=== PATIENT | female | born 1995 | race Caucasian/White ===

== ENCOUNTER 2017-04-04 17:25 | Inpatient (IN) | payer MEDICAID ==
[~2017-04-04] VITALS: Ht 165.1 cm; Wt 78.2 kg
[2017-04-04 18:31] LABS: Basophils # (auto) 0 uL; Basophils % (auto) 0.4 % (0.0-2.0); Eosinophils # (auto) 0 uL; Eosinophils % (auto) 0.2 % (0.0-7.0); Hematocrit 40.9 % (36.0-46.0); Hemoglobin 13.8 g/dL (12.2-16.2); Lymphocytes # (auto) 2.5 uL; Lymphocytes % (auto) 32.5 % (10.0-50.0); Mean Corpuscular Hemoglobin 28.4 pg (28.0-32.0); Mean Corpuscular Hgb Conc. 33.7 g/dL (32.0-36.0); Mean Corpuscular Volume 84.2 fL (80.0-100.0); Monocytes # (auto) 0.5 uL; Monocytes % (auto) 6.9 % (0.0-12.0); Neutrophils # (auto) 4.6 uL; Nucleated Red Blood Cells % 0.1 %; Platelet Count (auto) 295 10^3/uL (140-450); Red Blood Cells 4.86 10^6/uL (4.0-5.20); Red Cell Distribution Width 13.4 % (11.8-14.3); White Blood Cell 7.6 10^3/uL (4.4-10.8)
[2017-04-04 18:45] LABS: Albumin 4.4 g/dL (3.4-5.0); BUN/Creatinine Ratio 8.2; Calcium 9.7 mg/dL (8.5-10.1); Potassium 3.6 mmol/L (3.5-5.1)
[2017-04-04 18:48] LABS: Bilirubin, Total 0.4 mg/dL (0.2-1.0)
[2017-04-04 18:58] LABS: Urine Bacteria MOD /hpf (None Seen); Urine Blood Negative /uL (Negative); Urine Specific Gravity 1.003 (1.001-1.035); Urine WBC 2 /hpf (0 - 5)
[2017-04-04] MEDS ORDERED: IOHEXOL 300 MG/ML 100ML BOTTLE IJ ONE (22:47)
[2017-04-05] MEDS ORDERED: QUEtiapine FUMARATE 100 MG TAB PO ONE (03:30)
[2017-04-05] MEDS ORDERED: ONDANSETRON HCL 4 MG/2 ML VIAL IV PRN ×2 (03:30→16:00)
[2017-04-05] MEDS ORDERED: ACETAMINOPHEN 325 MG TAB PO PRN (03:30)
[2017-04-05] MEDS ORDERED: cefTRIAXone 1GM/10ml IVPUSH 10 ML IV ONE (03:30)
[2017-04-05] MEDS ORDERED: TEMAZEPAM 15 MG CAP PO PRN (03:30)
[2017-04-05] MEDS ORDERED: metroNIDAZOLE 500MG/100ML 100 ML IV ONE (03:30)
[2017-04-05] MEDS ORDERED: HYDROcodone-ACET 5/325MG TAB PO PRN (03:30)
[2017-04-05 04:23] LABS: INR 0.98 (0.9-1.15); Partial Thromboplastin Time 26.2 sec (22.64-33.71); Prothrombin Time 10.7 sec (9.37-12.3)
[2017-04-05] MEDS: SODIUM CHLORIDE 0.9% 1,000 ML IV SCH ×2 (04:30→16:50)
[2017-04-05 05:00] VITALS: BP 110/61
[2017-04-05] MEDS ORDERED: SERT-135 PO (05:53)
[2017-04-05] MEDS ORDERED: LAM100T OR (05:53)
[2017-04-05] MEDS ORDERED: QUET25TA37 PO (05:53)
[2017-04-05] MEDS ORDERED: CLON0.1T PO ×2 (05:53→09:10)
[2017-04-05] MEDS ORDERED: ATOM18CA PO (05:53)
[2017-04-05 09:00] VITALS: BP 106/47
[2017-04-05] MEDS: PANTOPRAZOLE 40 MG/10 ML VIAL IV SCH (09:40)
[2017-04-05] MEDS: lamoTRIgine 100 MG TAB PO SCH ×2 (09:40→21:42)
[2017-04-05] MEDS: SERTRALINE HCL 50 MG TAB PO SCH ×2 (09:40→21:42)
[2017-04-05] MEDS: cloNIDine HCL 0.1 MG TAB PO SCH (09:42)
[2017-04-05 13:00] VITALS: BP 102/67
[2017-04-05] MEDS ORDERED: ceFAZolin 1GM VL ONE (13:51)
[2017-04-05] MEDS ORDERED: ceFAZolin 1GM/50ML 50 ML IV ONE (13:56)
[2017-04-05] MEDS ORDERED: PROPOFOL 10 MG/ML 20 ML IV ONE (14:10)
[2017-04-05] MEDS ORDERED: ROCURONIUM 10MG/ML 10ML VIAL IV ONE (14:10)
[2017-04-05] MEDS ORDERED: fentaNYL CITRATE 100 MCG/2 ML VL ONE ×2 (14:10→15:01)
[2017-04-05] MEDS ORDERED: HYDROmorphone HCL 2 MG/ML VL ONE (14:57)
[2017-04-05] MEDS ORDERED: NEOSTIGMINE 1 MG/ML INJ (10mg/10ML VIAL) ONE (15:12)
[2017-04-05] MEDS ORDERED: GLYCOPYRROLATE 0.2 MG/ML 1ML VIAL ONE (15:12)
[2017-04-05] MEDS: LACTATED RINGER'S 1,000 ML IV SCH (15:48)
[2017-04-05] MEDS ORDERED: KETOROLAC TROMETH 30 MG/ML 1ML VIAL IV PRN (16:00)
[2017-04-05] MEDS ORDERED: hydrALAZINE HCL 20 MG/ML VL IV PRN (16:00)
[2017-04-05] MEDS ORDERED: HYDROmorphone HCL 2 MG/ML VL IV PRN ×2 (16:00)
[2017-04-05] MEDS ORDERED: ePHEDrine SULFATE 50 MG/ML AMP IV PRN (16:00)
[2017-04-05] MEDS ORDERED: ONDANSETRON HCL 4 MG/2 ML VIAL IV ONE (16:00)
[2017-04-05 17:03] VITALS: BP 100/64
[2017-04-05 22:00] VITALS: BP 112/62
[2017-04-05] MEDS ORDERED: QUEtiapine FUMARATE 100 MG TAB PO SCH (22:00)
[2017-04-06] MEDS: LACTATED RINGER'S 1,000 ML IV SCH (00:58)
[2017-04-06] MEDS: SODIUM CHLORIDE 0.9% 1,000 ML IV SCH (04:11)
[2017-04-06 05:00] VITALS: BP 119/61
[2017-04-06 07:50] LABS: Basophils # (auto) 0 uL; Basophils % (auto) 0.6 % (0.0-2.0); Eosinophils # (auto) 0 uL; Eosinophils % (auto) 0.1 % (0.0-7.0); Hematocrit 35.6 % (36.0-46.0); Hemoglobin 12.2 g/dL (12.2-16.2); Lymphocytes # (auto) 2.1 uL; Lymphocytes % (auto) 27.2 % (10.0-50.0); Mean Corpuscular Hemoglobin 28.8 pg (28.0-32.0); Mean Corpuscular Hgb Conc. 34.4 g/dL (32.0-36.0); Mean Corpuscular Volume 83.5 fL (80.0-100.0); Monocytes # (auto) 0.6 uL; Monocytes % (auto) 7.2 % (0.0-12.0); Neutrophils % (auto) 64.9 % (37.0-80.0); Platelet Count (auto) 225 10^3/uL (140-450); Red Blood Cells 4.26 10^6/uL (4.0-5.20); Red Cell Distribution Width 12.9 % (11.8-14.3); White Blood Cell 7.7 10^3/uL (4.4-10.8)
[2017-04-06 08:10] LABS: Albumin 3.4 g/dL (3.4-5.0); BUN/Creatinine Ratio 6.3; Bilirubin, Total 0.9 mg/dL (0.2-1.0); Calcium 8.3 mg/dL (8.5-10.1); Potassium 3.6 mmol/L (3.5-5.1); Total Protein 6.5 g/dL (6.4-8.2)
[2017-04-06 09:00] VITALS: BP 107/58
[2017-04-06] MEDS ORDERED: cefTRIAXone 1GM/10ml IVPUSH 10 ML IV SCH (09:00)
[2017-04-06] MEDS: PANTOPRAZOLE 40 MG/10 ML VIAL IV SCH (09:25)
[2017-04-06] MEDS: lamoTRIgine 100 MG TAB PO SCH (09:26)
[2017-04-06] MEDS: SERTRALINE HCL 50 MG TAB PO SCH (09:26)
[2017-04-06] MEDS: cloNIDine HCL 0.1 MG TAB PO SCH (09:26)
[2017-04-06 13:12] VITALS: BP 106/65
[2017-04-06 13:27] VITALS: BP 97/53
== END 2017-04-06 14:05 | disposition home or self-care (01) | DRG 518 ==
LOC: ER 17:28 → OVERFLOW 17:29 → EAST 04-05 05:13
PROVIDERS: ADMIT Nurse Practitioner; ATTEND Internal Medicine
PROC: 0WJG4ZZ Inspection of Peritoneal Cavity, Percutaneous Endoscopic Approach (ICD-10-PCS; 2017-04-05)
PROC: 0W9J4ZZ Drainage of Pelvic Cavity, Percutaneous Endoscopic Approach (ICD-10-PCS; principal; 2017-04-05 14:10)
DX: N83.201 Unspecified ovarian cyst, right side (principal); F84.0 Autistic disorder; K59.00 Constipation, unspecified; N80.9 Endometriosis, unspecified; G47.00 Insomnia, unspecified
CPT/HCPCS: 36415; 74176; 74177; 76705; 76856; 80053; 81001; 84702; 85025; 85610; 85730; 86850; 86900; 86901; 87070; 87075; 87205; C9113; J0690; J2704; J3490

== ENCOUNTER 2019-10-23 21:47 | Emergency (ER) | payer MEDICAID ==
[~2019-10-23] VITALS: Ht 165.1 cm; Wt 72.6 kg
[~2019-10-23 21:47] MED LIST: ATOM18CA PO; CLON0.1T PO; LAM100T OR; QUET25TA37 PO; SERT100T PO
[2019-10-23 22:30] LABS: Basophils # (auto) 0 10 ^3/uL (0-0.2); Basophils % (auto) 0.5 % (0.0-2.0); Eosinophils # (auto) 0 10 ^3/uL (0-0.8); Eosinophils % (auto) 0.4 % (0.0-7.0); Lymphocytes # (auto) 2.5 10 ^3/uL (0.4-5.4); Mean Corpuscular Hemoglobin 28.5 pg (28.0-32.0); Mean Corpuscular Hgb Conc. 33.2 g/dL (32.0-36.0); Mean Corpuscular Volume 85.9 fL (80.0-100.0); Monocytes # (auto) 0.6 10 ^3/uL (0-1.3); Neutrophils # (auto) 4.9 10 ^3/uL (1.6-8.6); Neutrophils % (auto) 60.1 % (37.0-80.0); Platelet Count (auto) 236 10^3/uL (140-450); Red Blood Cells 4.89 10^6/uL (4.0-5.20); Red Cell Distribution Width 13.9 % (11.8-14.3); White Blood Cell 8.1 10^3/uL (4.4-10.8)
[2019-10-23 22:51] LABS: Chloride 105 mmol/L (98-107); Potassium 4.3 mmol/L (3.5-5.1); Sodium 139 mmol/L (136-145)
[2019-10-23 22:55] LABS: Alanine Aminotransferase 16 U/L (13-56); Albumin 3.9 g/dL (3.4-5.0); Anion Gap 7 (5-15); Aspartate Aminotransferase 14 U/L (15-37); BUN/Creatinine Ratio 14.7; Blood Alcohol < 3.0 mg/dL (0-5); Blood Urea Nitrogen 14 mg/dL (7-18); Calcium 8.9 mg/dL (8.5-10.1); Carbon Dioxide 27 mmol/L (21-32); GFR African American 93 mL/min; GFR Non-African American 77 mL/min; Glucose 92 mg/dL (74-106); Magnesium 2.3 mg/dL (1.6-2.6); Salicylate < 1.7 mg/dL (2.8-20.0)
[2019-10-23 22:57] LABS: Alkaline Phosphatase 92 U/L (45-117); Bilirubin, Total 0.4 mg/dL (0.2-1.0); Total Protein 7.8 g/dL (6.4-8.2)
[2019-10-23 23:02] LABS: Acetaminophen < 2.0 ug/mL (10-30)
[2019-10-24 00:51] LABS: Urine Bacteria MOD /hpf (None Seen); Urine Blood Negative /uL (Negative); Urine Specific Gravity 1.011 (1.001-1.035); Urine WBC 5 /hpf (0 - 5)
[2019-10-24 00:58] LABS: Alcohol, Urine < 3.0 mg/dL (0-10); Amphetamine Screen, Urine NEGATIVE (NEGATIVE); Barbiturate Scree,Urine NEGATIVE (NEGATIVE); Benzodiazephine Screen, Urine NEGATIVE (NEGATIVE); Cannabinoid Screen, Urine POSITIVE (NEGATIVE); Cocaine Screen, Urine NEGATIVE (NEGATIVE); Opiate Scree,Urine NEGATIVE (NEGATIVE); Phencyclidine Screen, Urine NEGATIVE (NEGATIVE)
[2019-10-24] MEDS ORDERED: QUEtiapine FUMARATE 25 MG TAB PO ONE (05:00)
[2019-10-25] MEDS ORDERED: busPIRone HCL 10 MG TAB PO ONE (08:30)
[2019-10-25] MEDS: NITROFURANTOIN 100 mg CAP PO SCH ×2 (09:35→22:39)
[2019-10-25] MEDS ORDERED: hydrOXYzine 25 MG TAB or CAP PO ONE (10:00)
[2019-10-25] MEDS: hydrOXYzine 25 MG TAB or CAP PO SCH ×3 (11:33→22:40)
[2019-10-25] MEDS ORDERED: LITHIUM CARBONATE 300 MG TAB PO ONE ×2 (17:30→19:00)
[2019-10-25] MEDS ORDERED: QUEtiapine FUMARATE 25 MG TAB PO ONE (22:00)
[2019-10-26] MEDS: hydrOXYzine 25 MG TAB or CAP PO SCH ×4 (07:05→23:10)
[2019-10-26] MEDS: NITROFURANTOIN 100 mg CAP PO SCH ×2 (10:14→23:10)
[2019-10-27] MEDS ORDERED: hydrOXYzine 25 MG TAB or CAP ONE (06:29)
[2019-10-27] MEDS: hydrOXYzine 25 MG TAB or CAP PO SCH (06:55)
[2019-10-27 07:30] VITALS: BP 116/68
== END 2019-10-27 09:59 | disposition home or self-care (01) ==
LOC: ER 21:53
DX: T42.4X2A Poisoning by benzodiazepines, intentional self-harm, initial encounter (principal); R45.851 Suicidal ideations; F31.9 Bipolar disorder, unspecified; Z20.828 Contact with and (suspected) exposure to other viral communicable diseases; Y92.89 Other specified places as the place of occurrence of the external cause
CPT/HCPCS: 36415; 80053; 80307; 80320; 80329; 81001; 81025; 83735; 85025; 99285; C9803; U0003